=== PATIENT | female | born 1940 | race Caucasian/White ===

== ENCOUNTER 2017-04-07 08:13 | Day surgery (SDC) | payer OTHER ==
[2017-04-04 09:57] VITALS: BP 121/59
[2017-04-04 10:36] LABS: BASOPHILS # (AUTO) 0.03 x10^3/uL (0-0.1); BASOPHILS % (AUTO) 1 % (0-1); EOSINOPHILS # (AUTO) 0.09 x10^3/uL (0-0.4); EOSINOPHILS % (AUTO) 2 % (1-7); LYMPHOCYTES # (AUTO) 0.77 x10^3/uL (1-3.4); LYMPHOCYTES % (AUTO) 20 % (22-44); MD NO; MEAN CORPUSCULAR HEMOGLOBIN 29.6 pg (27.0-34.8); MEAN CORPUSCULAR HGB CONC 33.7 g/dL (32.4-35.8); MEAN CORPUSCULAR VOLUME 87.7 fL (80-100); MEAN PLATELET VOLUME 8.5 fL (7.4-10.4); MONOCYTES # (AUTO) 0.36 x10^3/uL (0.2-0.8); MONOCYTES % (AUTO) 9 % (2-9); NEUTROPHILS # (AUTO) 2.72 x10^3/uL (1.8-6.8); NEUTROPHILS % (AUTO) 69 % (42-75); PLATELET COUNT 216 x10^3/uL (130-400); RED BLOOD COUNT 4.62 x10^6/uL (3.82-5.3); RED CELL DISTRIBUTION WIDTH 13.2 % (9.6-15.2)
[2017-04-04 10:47] LABS: ALBUMIN 4.3 g/dL (3.4-5.0); ANION GAP 5 mmol/L (5-15); CALCIUM 9.4 mg/dL (8.5-10.1); CHLORIDE 102 mmol/L (98-107)
[2017-04-04 10:50] LABS: ALANINE AMINOTRANSFERASE 27 U/L (12-78); ALKALINE PHOSPHATASE 82 U/L (45-117); BILIRUBIN,TOTAL 0.4 mg/dL (0.2-1.0); CREATININE 0.92 mg/dL (0.55-1.02); TOTAL PROTEIN 7.6 g/dL (6.4-8.2)
[~2017-04-07] VITALS: Ht 170.2 cm; Wt 53.6 kg
[~2017-04-07 08:13] MED LIST: LISI-167 PO
[2017-04-07] MEDS ORDERED: SODIUM CHLORIDE 0.9% 1,000 ML IV SCH (08:24)
[2017-04-07] MEDS ORDERED: ASPI-496 PO (08:46)
[2017-04-07] MEDS ORDERED: TICAGRELOR 90 MG TABLET ONE (09:38)
[2017-04-07] MEDS ORDERED: FENTANYL PF 100 MCG/2ML ONE (09:38)
[2017-04-07] MEDS ORDERED: MIDAZOLAM 1 MG/ML, 2ML ONE (09:39)
[2017-04-07] MEDS ORDERED: HEPARIN 1,000 UNITS/ML, 10ML ONE (09:39)
[2017-04-07] MEDS ORDERED: LIDOCAINE 2%, 20ML ONE (09:39)
[2017-04-07] MEDS ORDERED: NITROGLYCERIN 5 MG/ML, 10ML ONE (09:39)
[2017-04-07] MEDS ORDERED: BIVALIRUDIN 250 MG ONE (09:39)
[2017-04-07] MEDS ORDERED: VERAPAMIL 2.5 MG/ML, 2ML ONE (09:39)
[2017-04-07] MEDS ORDERED: ACETAMINOPHEN 325 MG TABLET PO PRN (10:30)
[2017-04-08] MEDS ORDERED: ASPIRIN 81 MG TABLET EC PO SCH (09:00)
== END 2017-04-07 13:49 ==
LOC: CACL 08:13
PROVIDERS: ATTEND Internal Medicine Cardiovascular Disease
DX: R06.02 Shortness of breath (principal); R07.89 Other chest pain; E78.2 Mixed hyperlipidemia; I10 Essential (primary) hypertension; I47.1 Supraventricular tachycardia; M54.30 Sciatica, unspecified side; L57.0 Actinic keratosis; Z85.828 Personal history of other malignant neoplasm of skin; Z87.39 Personal history of other diseases of the musculoskeletal system and connective tissue; Z72.89 Other problems related to lifestyle
CPT/HCPCS: 36415; 71046; 80053; 85025; 93458; 99156; C1769; C1894; J1644; J2250; J3010; J3490; Q9967; J0583

== ENCOUNTER → 2018-04-21 | Outpatient (CLI) | payer MEDICARE ==
[~2018-04-21] MED LIST changes: +ASPI-496 PO
== END | disposition home or self-care (01) ==
LOC: CFH 12:20
PROVIDERS: ATTEND Family Medicine
DX: R92.8 Other abnormal and inconclusive findings on diagnostic imaging of breast (principal)
CPT/HCPCS: 77065; G0279

== ENCOUNTER → 2018-06-18 | Outpatient (CLI) | payer MEDICARE | END | disposition home or self-care (01) | LOC: CFH 09:41 | PROVIDERS: ATTEND Family Medicine | DX: M25.851 Other specified joint disorders, right hip (principal); R91.8 Other nonspecific abnormal finding of lung field; J32.9 Chronic sinusitis, unspecified; Z96.641 Presence of right artificial hip joint | CPT/HCPCS: 73552; 78815; A9552 ==

== ENCOUNTER → 2019-04-22 | Outpatient (CLI) | payer MEDICARE | END | disposition home or self-care (01) | LOC: CFH 09:25 | PROVIDERS: ATTEND Nurse Practitioner Family | DX: Z12.31 Encounter for screening mammogram for malignant neoplasm of breast (principal); I08.8 Other rheumatic multiple valve diseases; I10 Essential (primary) hypertension | CPT/HCPCS: 77063; 77067; 93306 ==